=== PATIENT | male | born 1945 | race Caucasian/White ===

== ENCOUNTER 2023-02-07 06:47 | Day surgery (SDC) | payer OTHER ==
[2023-02-04 09:48] LABS: BASOPHILS % (AUTO) 1.1 % (0.0-5.0); EOSINOPHILS % (AUTO) 3.4 % (0.0-8.0); HEMATOCRIT 46.6 % (42-54); LYMPHOCYTES % (AUTO) 24.4 % (21.0-51.0); MEAN CORPUSCULAR HEMOGLOBIN 30.9 pg (27.0-33.0); MEAN CORPUSCULAR HGB CONC 32.4 g/dL (32.0-36.0); MEAN CORPUSCULAR VOLUME 95.3 fL (79-99); MONOCYTES % (AUTO) 9.5 % (3.0-13.0); NEUTROPHILS % (AUTO) 61.2 % (40.0-77.0); PLATELET COUNT (AUTO) 220 K/uL (130-400); RED BLOOD CELL COUNT(AUTO) 4.89 MIL/uL (4.50-6.20); RED CELL DISTRIBUTION WIDTH 14.2 % (11.0-15.5); WHITE BLOOD COUNT (AUTO) 4.7 K/uL (4.8-10.8)
[2023-02-04 09:50] VITALS: BP 135/77
[2023-02-04 09:57] LABS: INR 0.97 (0.85-1.15); PROTHROMBIN TIME 10.6 SEC (9.6-11.6)
[2023-02-04 09:59] LABS: PARTIAL THROMBOPLASTIN TIME 28.1 SEC (26.3-35.5)
[2023-02-04 10:02] LABS: CREATININE 0.8 mg/dL (0.5-1.5); POTASSIUM 4.4 mmol/L (3.5-5.1)
[2023-02-07] VITALS (17 sets, daily range): BP systolic 126–152; BP diastolic 74–88
[~2023-02-07] VITALS: Ht 175.3 cm; Wt 74.8 kg
[~2023-02-07 06:47] MED LIST: ALBUTEROL INHALER IH; ASCO1TAB40 PO; ESOM20CA31 PO; FLUT16H NASAL; GUAI600T50 PO; LEVO5TAB29 PO; MELO-106 PO; OXYM30SP27 NS; PREVAGEN PO; PSEU-221 PO; UBID1CAP56 PO; VALA500T42 PO; VIT1CAPS47 PO
[2023-02-07] MEDS ORDERED: LACTATED RINGERS 1000ML 1,000 ML IV ONE (07:10)
[2023-02-07] MEDS ORDERED: DEXAMETHASONE SOD PHOSPHATE 10MG/ML 1ML VIAL ONE (10:20)
[2023-02-07] MEDS ORDERED: ONDANSETRON 4MG INJ ONE (10:20)
[2023-02-07] MEDS ORDERED: FENTANYL CITRATE PF 50 MCG/1 ML 2ML VIAL ONE (10:20)
[2023-02-07] MEDS ORDERED: BACITRACIN 28.4 GM OINT TP ONE ×2 (10:20→11:35)
[2023-02-07] MEDS ORDERED: NEOSTIGMINE 5MG/5ML SYR IV ONE (10:20)
[2023-02-07] MEDS ORDERED: LIDOCAINE PF 100MG/5ML (2%) SYRINGE 5ML ONE ×2 (10:20→11:35)
[2023-02-07] MEDS ORDERED: GLYCOPYRROLATE 1 MG/5 ML SYRINGE ONE (10:20)
[2023-02-07] MEDS ORDERED: SUCCINYLCHOLINE 200MG/10ML SYR ONE (10:20)
[2023-02-07] MEDS ORDERED: ROCURONIUM 10MG/1ML SYR 10 MG/ML ML ONE (10:20)
[2023-02-07] MEDS ORDERED: MIDAZOLAM HCL 1 MG/ML 2ML VIAL ONE (10:20)
[2023-02-07] MEDS ORDERED: PROPOFOL 10 MG/ML 20ML VIAL IV ONE (10:20)
[2023-02-07] MEDS ORDERED: LIDOCAINE 1%-EPI 1:100,000 20 ML VIAL IJ ONE (10:21)
[2023-02-07] MEDS ORDERED: OXYMETAZOLINE HCL SPRAY 15 ML BOTTLE ONE (10:34)
[2023-02-07] MEDS ORDERED: EPHEDRINE SULFATE 50 MG/ML AMPULE ONE (11:08)
== END 2023-02-07 13:20 | disposition home or self-care (01) ==
LOC: DAH 06:47
PROVIDERS: ATTEND Otolaryngology Plastic Surgery within the Head & Neck
DX: J34.89 Other specified disorders of nose and nasal sinuses (principal); Z20.822 Contact with and (suspected) exposure to COVID-19; J34.2 Deviated nasal septum; J34.3 Hypertrophy of nasal turbinates; J30.9 Allergic rhinitis, unspecified; K21.9 Gastro-esophageal reflux disease without esophagitis; Z79.01 Long term (current) use of anticoagulants; Z79.899 Other long term (current) drug therapy; Z88.2 Allergy status to sulfonamides; Z85.46 Personal history of malignant neoplasm of prostate; Z82.49 Family history of ischemic heart disease and other diseases of the circulatory system; Z83.430 Family history of elevated lipoprotein(a); Z80.1 Family history of malignant neoplasm of trachea, bronchus and lung
CPT/HCPCS: 80048; 85025; 85610; 85730; 87426; 36415; 93005; 30930; 30520; A6260; A4663; A4649; J7120; J3010; J3490 ×3; J0330; J1100; J2710; J2001 ×2; J2250; J2704; J2405; A4215; A4223; A4222; A4221; A4600